=== PATIENT | male | born 1965 | race Caucasian/White ===

== ENCOUNTER 2016-10-11 05:56 | Day surgery (SDC) | payer OTHER ==
[2016-10-11] VITALS (15 sets, daily range): BP systolic 93–146; BP diastolic 50–75; PULSE 66–99; RESP 12–20; O2SAT 89–98
[~2016-10-11] VITALS: Ht 162.6 cm; Wt 124.8 kg
[~2016-10-11 05:56] MED LIST: ASPI-973 PO; ATOR20TA PO; CITA20TA11 PO; Lactated Ringer's 1,000 ML IV ONE; SILD50TA PO; TAMS0.4C98 PO; TEST60GE TP; TRAZ-118 PO
[2016-10-11] MEDS ORDERED: CeFAZolin Inj 3 GM in IV Premix 1 EACH IV ONE (06:00)
[2016-10-11] MEDS ORDERED: Bupivacaine 0.5%/EPI 50 mL Inj INFILTRATE ONE (08:43)
[2016-10-11] MEDS ORDERED: Heparin 1,000 Unit/mL 10 mL Inj IRRIGATION ONE (08:44)
[2016-10-11] MEDS ORDERED: Lactated Ringer's 500 ML IV PRN (09:04)
[2016-10-11] MEDS ORDERED: Lactated Ringer's 1,000 ML IV SCH (09:04)
--- NOTE | 2016-10-11 09:04 | PCM.HPANE ---
Patient Data Date of Service: Oct 11, 2016 Surgeon Admitting Provider: Attending Provider:Ricardo Santiago MD Primary Care Physician:Triston Other Provider:Rohan Pena Anesthesia Reason for Visit Left Carotid Stenosis LEFT CAROTID STENOSIS Ht/WT & BMI Height (Feet): 5 Height (Inches): 4 Weight (Kilograms): 123.8 Body Mass Index 46.00 Allergies Coded Allergies: No Known Allergies (Verified , 10/06/16) Past Anesthesia History Anesthesia History: Denies:: Anesthesia Reactions, Malignant Hyperthermia Diabetes History Hx Diabetes?: No Current Bedside Blood Glucose: 108 MRSA MRSA: No Medications Blood Thinner: Aspirin Last Dose Blood Thinner: Oct 11, 2016 Hypertension Medication: No Home Meds Incl Beta Genny: No Reported Medications Aspirin 81 Mg [id number] Mg PO DAILY Ref 0 10/06/16 Sildenafil Citrate (Viagra)50 Mg [id number] Mg PO UD PRN ed Ref 0 10/06/16 Trazodone 100 Mg [id number] Mg PO HS Ref 0 10/06/16 Tamsulosin (Flomax)0.4 Mg Capsule0.4 Mg PO DAILY Ref 0 10/06/16 Citalopram 20 Mg [id number] Mg PO DAILY Ref 0 10/06/16 Atorvastatin (Lipitor)20 Mg [id number] Mg PO DAILY Ref 0 10/06/16 Discontinued Reported Medications Testosterone (Fortesta)60 Gm Gel..pmp40 Mg TP DAILY 10/06/16 Hydrocod/APAP-Expunged, Do Not Renew! (Vicodin-Expunged Drug, Do Not Renew)1 Tab Tab1 Tab PO PRN Ref 0 09/25/08 History History of ENT Problems?: Yes HEENT History: Positive for:: Sinus Problem (SEASONAL ALLERGIES) Hx of Heart Problems?: Yes Cardiovascular History: Positive for:: Peripheral Vascular (LT CAROTID STENOSIS (90%)=CURRENT PROBLEM RT=20-30% OCCLUSION) Denies:: Heart Murmur (MPS 09/2016 EF 75% WNL) Hypertension (HYPERLIPIDEMIA) Valvular Heart Disease Hx of Respiratory Problem?: Yes Respiratory History: Positive for:: Cough (CHRONIC) Use of C-PAP Machine (CAROL+ W/ CPAP) Hx Neurologic Problems?: Yes Neurological History: Positive for:: Headaches Hx of GI Problems?: No Hx of Problems?: Yes Other Pertinent History: ED Male Hx: Positive for:: Prostate Problems (BPH) Denies:: Scrotal Mass Testicular Surgery (HYPOGONADISM S/P VASECTOMY) Skin History: Denies:: History Skin Disorders? Pressure Ulcers Hx Musculoskeletal Problems?: Yes Musculoskeletal History: Positive for:: Degenerative Joint Joint Replacement (S/P LT MAHIN) Musculoskeletal Trauma (S/P RT LEG RPR, RT CTR) Osteoarthritis Hx of Psycho/Social Problems?: Yes Psycho Social History: Positive for:: Anxiety Hx Depression Hx Surgeries?: Yes (VASECTOMY,LT MAHIN,RT CTR,RT LEG RPR) Hx Any Other Health Problems?: Yes Other History: Positive for:: Endocrine Disease (HYPOGONADISM) Denies:: Cancer Hospitalization Thyroid Disease History Blood Transfusions: Denies:: Blood Transfusions Hx Diabetes: NoBedside Blood Glucose: 108 Hx Alcohol Use: NoHave You Smoked inLast 12 mo: YesApprox How Many Cigarettes/ day: 1 PPD X 38YRS Stop/Bang Treated for Sleep Apnea?: Yes Do You Have a CPAP Machine?: Yes S-Snoring: Do You Snore Loudly: No T-Tired: feel tired, fatigued: Yes O-Obsered: Observed not breath: Yes P-Blood Pressure: treated: No B- Body Mass Index > 35 kg/m2: Yes A- Age over 50: Yes N- Neck Large Circumference: Yes G- Gender Male: Yes CAROL Total Score: 6 Risk Assessment Category Category 1A: Patient has history of documented sleep apnea, and HAS NOT received any narcotic, sedative or anesthesia administration during this stay. Category 1B: Patient has history of documented sleep apnea, and HAS received any narcotic , sedative or anesthesia administration during this stay Category 2: Patient has SUSPECTED Obstructive Sleep Apnea, and HAS received any narcotic , sedative or anesthesia administration during this stay. Category 3: Patient has SUSPECTED Obstructive Sleep Apnea and HAS NOT received narcotic, sedative or anesthesia administration during this stay. Category 4: Outpatient in Procedural Areas with known sleep apnea or who screen positive for High Risk via the STOP/BANG questionnaire. Exam Exam Vital Signs Vital Signs Date Time Temp Pulse Resp B/P Pulse Ox O2 Delivery O2 Flow Rate FiO2 10/11/16 06:22 CPAP/BIPAP 10/11/16 06:20 36.3 69 20 146/62 98 Room Air General Appearance: Alert, Oriented X3, Cooperative HEENT/AIRWAY: MP 4 Lungs: Clear to Auscultation Heart: Exam Unremarkable Meds/Labs/Diagnostics Admission Meds Current Medications Cefazolin Sodium/ Dextrose/Premix (Ancef Inj / D5W 50mL/IV Premix) 50 ml @ 0 mls /hr ONCE ONCE IV Last administered on 10/11/16 08:17; Start 10/11/16 at 06:00; Stop 10/11/16 at 06:01; Status DC Aspirin 81 mg 81 mg ONCE ONCE PO Last administered on 10/11/16 06:21; Start at 06:00; Stop 10/11/16 at 06:01; Status DC Lactated Ringer's (Lr) 1,000 ml @ 120 mls/hr Q8H20M ONCE IV Last administered on 10/11/16 05:59; Start 10/11/16 at 05:00; Stop 10/11/16 at 13:19 Bupivacaine HCl/ Epinephrine Bitart (Sensorcaine 0.5%/EPI Inj) 50 ml STK-MED ONCE INFILTRATE Last administered on 10/11/16 08:43; Start 10/11/16 at 08:43; Stop 10/11/16 at 08:55; Status DC Heparin Sodium (Porcine) (Heparin Inj) 10,000 unit STK-MED ONCE IRRIGATION Last administered on 10/11/16 08:44; Start 10/11/16 at 08:44; Stop 10/11/16 at 08: 55; Status DC Bedside Blood Glucose: 108 Plan Impression Patient chart reviewed, patient interviewed and anesthestic plan with risks, benefits, and alternatives discussed, and informed consent obtained. NPO Status: 199910/10/16 ASA Physical Status: ASA3 Severe Disease Anesthetic Support Modalities: Arterial Line Anesthetic Plan: GA Bene/Risks/Altern/Consents: Yes HP Complete Prior to Induction: Yes Other GLIDESCOPE IN ROOM Vahid Waters MD Oct 11, 2016 09:04
[2016-10-11] MEDS ORDERED: EPHEDrine Sulfate 50 mg/mL Inj IVPUSH PRN (09:05)
[2016-10-11] MEDS ORDERED: Dexamethasone 4 mg/mL Inj IVPUSH PRN (09:05)
[2016-10-11] MEDS ORDERED: MetoCLOpramide 5 mg/mL 2 mL Inj IVPUSH PRN (09:05)
[2016-10-11] MEDS ORDERED: Phenylephrine 10,000 mCg/mL Inj IVPUSH PRN (09:05)
[2016-10-11] MEDS ORDERED: HYDROmorphone 1 mg/mL Inj IVPUSH PRN (09:05)
[2016-10-11] MEDS ORDERED: Ondansetron 2 mg/mL 2 mL Inj IVPUSH PRN ×2 (09:05→11:10)
[2016-10-11] MEDS ORDERED: fentaNYL-PF 50 mCg/mL 2 mL Inj IVPUSH PRN (09:05)
[2016-10-11] MEDS ORDERED: Heparin 1,000 Unit/mL 10 mL Inj IVPUSH ONE (09:40)
[2016-10-11] MEDS ORDERED: Lactated Ringer's 1,000 ML IV ONE (10:42)
[2016-10-11] MEDS: Norepineph 8,000 mCg/250 mL NS 8,000 MCG in IV Premix 1 EACH IV SCH (11:06)
[2016-10-11] MEDS: Dextrose 5% Lactated Ringer's 1,000 ML IV SCH ×2 (11:06→23:17)
[2016-10-11] MEDS ORDERED: HYDROcodone-APAP 5-325 mg Tablet PO PRN (11:10)
[2016-10-11] MEDS ORDERED: Labetalol 5 mg/mL 4 mL Inj IVPUSH PRN (11:10)
[2016-10-11] MEDS ORDERED: Acetaminophen IV 1,000 MG in IV Premix 1 EACH IV PRN (11:10)
[2016-10-11] MEDS ORDERED: Lidocaine PF 1% 30 mL Inj ONE (11:14)
[2016-10-11] MEDS ORDERED: Neostigmine 1 mg/mL 5 mL Inj ONE (11:14)
[2016-10-11] MEDS ORDERED: Phenylephrine/NS 100 mCg/mL 10 mL Syringe IVPUSH ONE (11:14)
[2016-10-11] MEDS ORDERED: Glycopyrrolate 0.2 mg/mL 5 mL Inj ONE (11:14)
[2016-10-11] MEDS ORDERED: Ondansetron 2 mg/mL 2 mL Inj ONE (11:14)
[2016-10-11] MEDS ORDERED: Dexamethasone 4 mg/mL Inj ONE (11:14)
[2016-10-11] MEDS ORDERED: Succinylcholine Chloride 20 mg/mL 5 mL Inj ONE (11:14)
[2016-10-11] MEDS ORDERED: Propofol 10,000 mCg/mL 20 mL Inj ONE (11:14)
--- NOTE | 2016-10-11 12:13 | PCM.ANEP1 ---
Post Anesthesia Phase 1 PACU Phase 1 Assessment Date of Service: Oct 11, 2016 Vital Signs Vital Signs Date Time Temp Pulse Resp B/P Pulse Ox O2 Delivery O2 Flow Rate FiO2 10/11/16 06:22 CPAP/BIPAP 10/11/16 06:20 36.3 69 20 146/62 98 Room Air Anesthetic Administered: GA Level of Alertness: Sleepy, easy to arouse VAUGHN's with Equal Strength: Yes Pain: No Nausea or Vomiting: No Airway Device: Nasal Airway Oxygen Delivery: Simple Mask Lungs: Clear to Auscultation Summary followed commands in all 4 post-op Vahid Waters MD Oct 11, 2016 12:13
--- NOTE | 2016-10-11 13:58 | PCM.ANEP2 ---
Post Anesthesia Evaluation ASA/CMS Post Anesthesia VS in Patient's Normal Range?: Yes Resp Stable; Airway Patent?: Yes CV Function & Hydration Stable: Yes Mental Status Recovered?: Yes Pain control Satisfactory?: Yes N/V Control Satisfactory?: Yes Additional Comments Notified patient that while airway was technically not difficult, that he should mention to anesthesia, that his airway could be difficult, especially with bag mask ventilation. Vahid Waters MD Oct 11, 2016 13:58
[2016-10-11] MEDS ORDERED: fentaNYL-PF 50 mCg/mL 2 mL Inj ONE (17:53)
[2016-10-11] MEDS ORDERED: Ketamine 10 mg/mL 20 mL Inj ONE (17:53)
--- NOTE | 2016-10-11 18:18 | NUR ---
Arrived He arrived to [facility] 2006 from PACU. Report taken from Pasquale KRISHNAMURTHY in PACU. He arrived and was able to transfer himself from the gurney to the bed. A&Ox3, no complaints of pain other than an occasional headache (states he gets cluster headaches from time to time). Telemetry placed on him (sinus rhythm 90s). Left neck incision is clean, dry, and intact with Dermabond. Ordered dinner and is tolerating it well. IV saline locked as he is drinking large amount of liquids since his arrival. Care continues. Addendum: 10/11/16 at 1825 by PREMA ONOFRE RN Arrived at [id number].
--- NOTE | 2016-10-11 22:38 | OP ---
[address] [address] OPERATIVE REPORT PATIENT: DE HAMM : 1965 MR#: [id number] ADMIT: 10/11/2016 JOB ID: [id number] DATE OF SURGERY: 10/11/2016 PREOPERATIVE DIAGNOSIS(ES): 1. Severe asymptomatic left internal carotid stenosis. 2. Morbid obesity. POSTOPERATIVE DIAGNOSIS(ES): 1. Severe asymptomatic left internal carotid stenosis. 2. Morbid obesity. PROCEDURE: Left carotid endarterectomy with shunt and patch. Modifier-22. SURGEON: Ricardo Santiago MD. GUN PROFILER: Carey Keene PA-C. INDICATIONS: The patient is a 51-year-old man with morbid obesity with a BMI of 46. He has been an every day smoker and has developed a 90% stenosis of his left internal carotid artery. His right internal carotid has 20% to 30% stenosis. He has a dominant left vertebral and a right vertebral is poorly visualized. He has no symptoms from his left internal carotid stenosis. Preoperatively, he had a normal sestamibi scan. But after discussing options with the patient and because of the severity of his stenosis, it was elected to proceed with a left carotid endarterectomy with shunt and patch. FINDINGS: As advertised, he had a severe approximate 90% stenosis of his left internal carotid artery. He had pulsatile backflow from his distal left internal carotid. He had normal inflow from the left common carotid. Because of his morbid obesity and short stature, exposure was slow, but ultimately it was successful. Upon arrival in the recovery room, he was moving both his right upper and lower extremities, his tongue was midline, and there is no evidence of neurologic complications or cardiac complications. DESCRIPTION OF PROCEDURE: At the beginning and end of the operation, the SCOAP checklist was completed. An arterial line was placed and then a general endotracheal anesthetic was induced by Dr. Vahid Waters. His neck was extended and rotated to the right. He had taken aspirin preoperatively this morning. He received preoperative antibiotics and using ChloraPrep his neck was prepped and draped in usual fashion. The incision was designed and infiltrated with 1% lidocaine with epinephrine. An incision paralleling the border of the left sternocleidomastoid muscle was made. Using cautery dissection through the subcutaneous tissue down to and through the platysma was completed. Dissection then went deeper into the neck. The common facial vein was identified and it had several branches. They were exposed, clamped, divided, and then suture ligated with 3-0 silk. The common carotid was identified. Dissection was carried up to the bifurcation. The superior thyroid was identified and controlled with vessel loop. Immediately beyond its origin, the divided two branches were identified and these were controlled with vessel loops. To expose the distal internal carotid and to get beyond the plaque, I did further dissection cephalad including dividing the venous branches which were tethering the 12th cranial nerve across the internal carotid. With very careful sharp and blunt dissection this was accomplished and the veins were divided with vessel clips. After getting beyond the plaque, he was given 8000 units of intravenous heparin and the internal carotid dissection was completed, and it was controlled with a vessel loop. The carotid was then occluded first distally, then proximally after about 6 minutes after giving heparin, the artery was opened and the arteriotomy was extended through the plaque. The internal carotid was identified and the Vaughn shunt was first placed distally and then proximally. Unfortunately, because of the immediate branch of the external carotid, I had to occlude the external carotid with a vascular clamp. The endarterectomy was performed. The distal intima was secure there was no distal flap. The loose filaments were removed. The arteriotomy was closed with a bovine pericardial patch with running 6-0 Prolene suture. Just before completing the closure of the arteriotomy, the artery was flushed with heparinized saline. The shunt was removed first proximally then distally with good flow from both directions. The artery was again flushed with heparinized saline and the arteriotomy closure was completed. After tying the suture, the internal carotid artery was backflushed, followed by forward flushing first into the external carotid. I then repeated the occluding the common carotid and then once again backflushed the internal carotid. Again, forward flow first went into the external carotid then into the internal carotid. There was no bleeding from the suture line. There was no evidence of a thrill or ecchymosis in the distal artery. The arteriotomy was covered with FloSeal The platysma was closed with running 3-0 Vicryl and skin with running subcuticular 4-0 Vicryl. Dermabond was applied. The estimated blood loss was 100 cc. There were no apparent complications. Again, before leaving the operating room he was moving all his extremities and his tongue was midline. The final sponge, needle and instrument counts were announced as correct and he was returned to the recovery in stable condition. Critical assistance was provided by Carey Keene PA-C. MODIFIER-22: Because of his short staute and neck (5 ft 3 inches) and obesity ( BMI 46) and the lenght of his stenosis, this operation was significantly harder then a typical carotid endarterectomy. ELOISE
--- NOTE | 2016-10-11 23:13 | NUR ---
Pain Pt denies neck pain. No swelling noted at left neck incision site Pt denies cluster HERRING as well. Resting comfortably. Cont pulse ox in place. Care ongoing.
[2016-10-12 04:28] VITALS: BP 129/65; PULSE 80; RESP 22; O2SAT 96
[2016-10-12 08:15] VITALS: BP 129/65; PULSE 78; RESP 18; O2SAT 95
[2016-10-12] MEDS: Norepineph 8,000 mCg/250 mL NS 8,000 MCG in IV Premix 1 EACH IV SCH (08:23)
--- NOTE | 2016-10-12 09:08 | PCM.PNSURG ---
Subjective Visit Information: Reason for Visit Left Carotid Stenosis Surgery/Surgery Date L CAROTID ENDARTERECTOMY 10/11/16 Post-Op Day #1 Date of Admission: Oct 11, 2016 at 17:52 Hospital Day # Subjective: Feels well, requesting discharge. Eating solid foods with no nausea, vomiting, dysphagia. Denies surgical site pain. Ambulating without assistance. Denies blurred vision or diplopia. Postop General: No Complaints Gastrointestinal: Good Appetite, Tolerating Oral Feedings, No N/V Pain Management: No or Minimal Pain Postop Activity: Ambulating in Room Only Objective Vital Sign- Last 8 Hours Date Time Temp Pulse Resp B/P Pulse Ox O2 Delivery O2 Flow Rate FiO2 10/12/16 08:15 36.8 78 18 129/65 95 10/12/16 04:28 36.5 80 22 129/65 96 Room Air Intake and Output- Last 8 Hour 10/12/16 Cumulative From/Thru 07:00 10/06/16 12:11 - 10/12/16 05:30 Intake Total 1000 ml 2800 ml Output Total 1600 ml 1700 ml Balance -600 ml 1100 ml Intake Oral 1000 ml 1000 ml IV Total 1800 ml Output Urine Total 1600 ml 1600 ml Estimated Blood Loss 100 ml # Voids 3 3 # Bowel Movements 0 0 General: Alert, Cooperative, No Acute Distress Neck: Full Range of Motion, Other (minimal edema at surgical site) Lungs: Clear to Auscultation Heart: Regular Rate/Rhythm, No Murmurs/Rubs/Gallops SURGICAL WOUND : Wound General Appearence: Sutures, Intact, Well Approximated, No Erythema, No Discharge Neuro: Grossly Neurologically Intact, Normal Speech Catheters: None Assessment & Plan Impression Primary diagnoses: 1. Severe asymptomatic left internal carotid stenosis. POD #1, neurologically intact. Stable for discharge. 2. Morbid obesity, BMI 47.2 Other diagnoses: 1. Hyperlipidemia 2. Daily cigarette smoker 3. Erectile dysfunction Problems: Plan Discharge home on daily aspirin and all other home medications. Follow-up in the office with Ricardo Santiago in 7-14 days. Pain Management: Tylenol when necessary Resuscitation Status: CPR: Attempt Resuscitation Fabián Portillo PA-C Oct 12, 2016 09:08
--- NOTE | 2016-10-12 09:11 | PCM.DISURG ---
Surgical Discharge Instruction Date of Service Oct 12, 2016 Dates of Hospitalization Date of Hospital Admission Oct 11, 2016 at 17:52 Providers Admitting Physician: Ricardo Santiago MD Primary Care Physician: Nopcrys Attending Physician: Ricardo Santiago MD Discharge Diagnosis Discharge Diagnosis Primary diagnoses: 1. Severe asymptomatic left internal carotid stenosis. 2. Morbid obesity, BMI 47.2 Other diagnoses: 1. Hyperlipidemia 2. Daily cigarette smoker 3. Erectile dysfunction Post Operative diagnosis Same Diet Discharge Diet: Other (heart healthy) Activity Discharge Activity-General: Balance rest and activity, Activity as energy allows Dressing and Incisional Care Hygiene: May shower Follow Up Plan Follow-up Provider (F9): Ricardo Santiago MD Follow-up appointment: Days (7-14) Call your provider for: Wound redness, Increasing wound pain, Warmth to touch, Discharge @ incision, pus discharge, Other (neck swelling) Fabián Portillo PA-C Oct 12, 2016 09:11
--- NOTE | 2016-10-12 09:16 | PCM.DC.SUR ---
Discharge Summary Date of Service: Oct 12, 2016 Date of Hospital Admission: Oct 11, 2016 at 17:52 Date of Operation(s): 10/11/2016 Date of Discharge: 10/12/2016 Diagnosis at Time of Discharge Primary diagnoses: 1. Severe asymptomatic left internal carotid stenosis. 2. Morbid obesity, BMI 47.2 Other diagnoses: 1. Hyperlipidemia 2. Daily cigarette smoker 3. Erectile dysfunction Problems: Operation Left carotid endarterectomy with shunt and patch Brief History and Physical: The patient is a 51-year-old man with morbid obesity with a BMI of 46. He has been an every day smoker and has developed a 90% stenosis of his left internal carotid artery. His right internal carotid has 20% to 30% stenosis. He has a dominant left vertebral and a right vertebral is poorly visualized. He has no symptoms from his left internal carotid stenosis. Preoperatively, he had a normal sestamibi scan. Consultants: None Hospital Course: The patient was admitted and underwent the above-mentioned operation without complication the following morning the patient was neurologically intact, his neck wound was not edematous, he was stable for discharge. Pathology: None Disposition: The patient was discharged to home on his first postsurgical morning. Follow-up Plan: He will follow-up in the office with Dr. Ricardo Santiago in 7-14 days. Aspirin (Aspirin) 81 Mg Tablet 81 MG PO DAILY (Reported) Atorvastatin (Lipitor) 20 Mg Tablet 20 MG PO DAILY (Reported) Citalopram (Citalopram) 20 Mg Tablet 20 MG PO DAILY (Reported) Sildenafil Citrate (Viagra) 50 Mg Tablet 50 MG PO UD PRN PRN ed (Reported) Tamsulosin (Flomax) 0.4 Mg Capsule 0.4 MG PO DAILY (Reported) Trazodone (Trazodone) 100 Mg Tablet 100 MG PO HS (Reported) Fabián Portillo PA-C Oct 12, 2016 09:16
[2016-10-12 09:58] VITALS: PULSE 78
--- NOTE | 2016-10-12 11:17 | NUR ---
Discharge Patient A&O, VSS, ambulating in hallway independently. Patient c/o 12/13 pain at incision site, relieved by vicodin. Incision is well approximated with minimal redness. No swelling or discharge noted. Discharge instructions printed and reviewed verbally with patient. Patient ambulated off unit with all personal belongings and discharged home via personal vehicle.
== END 2016-10-12 11:15 | disposition home or self-care (01) ==
LOC: SAS 05:56 → PCC 17:52 → UNDOADMIN 17:52 → SAS 10-12 11:15 → UNDODISIN 10-12 11:15
PROVIDERS: ATTEND Surgery
DX: I65.22 Occlusion and stenosis of left carotid artery (principal); E66.01 Morbid (severe) obesity due to excess calories; Z68.42 Body mass index [BMI] 45.0-49.9, adult; F17.210 Nicotine dependence, cigarettes, uncomplicated; F12.90 Cannabis use, unspecified, uncomplicated; I10 Essential (primary) hypertension; F32.9 Major depressive disorder, single episode, unspecified; E78.5 Hyperlipidemia, unspecified; N40.0 Benign prostatic hyperplasia without lower urinary tract symptoms; M47.812 Spondylosis without myelopathy or radiculopathy, cervical region; G44.009 Cluster headache syndrome, unspecified, not intractable; Z79.82 Long term (current) use of aspirin
CPT/HCPCS: 35301; J0330; J0690; J1100; J1644; J2250; J2370; J2405; J2710; J3010; J7120